=== PATIENT | female | born 1980 | race Caucasian/White ===

== ENCOUNTER → 2017-03-11 | Outpatient (CLI) | payer BC ==
[~2017-03-11] MED LIST: HYDR1LIQ PO; HYDR2TAB PO; LEVO25TA55 PO; OMEP20CA9 PO; TRAM50TA PO; VENL150C PO
--- NOTE | 2017-03-11 13:01 | RAD ---
Indication neck pain. No history of trauma. Axial images through the cervical spine were obtained and reformatted in the coronal and sagittal planes. Disc images were also obtained. It should be noted that CT is relatively insensitive evaluating for disc disease in the cervical spine. If additional imaging is warranted consider MRI. The lung apices are clear. A significant soft tissue finding in the neck is not seen. Review of axial images shows no acute finding. Significant bony degenerative changes are not seen. Vertebral height alignment and disc spaces are unremarkable. Significant bony neural foraminal encroachment is not seen at any level. There is perhaps some mild soft tissue encroachment of the right neural foramina at C6-7 and C7-T1. Again MRI should be considered for additional evaluation. IMPRESSION: No acute finding seen in the cervical spine. No bony central canal narrowing at any level. Suspect mild right foraminal encroachment at C6-7 and C7-T1. Consider MRI for additional evaluation and characterization PQRS Compliance Statement: One or more of the following individualized dose reduction techniques were utilized for this examination: 1. Automated exposure control 2. Adjustment of the mA and/or kV according to patient size 3. Use of iterative reconstruction technique
== END | disposition home or self-care (01) ==
LOC: CT 11:44
PROVIDERS: ATTEND Anesthesiology
DX: M54.2 Cervicalgia (principal); K21.9 Gastro-esophageal reflux disease without esophagitis; M19.90 Unspecified osteoarthritis, unspecified site; F32.9 Major depressive disorder, single episode, unspecified; Z86.39 Personal history of other endocrine, nutritional and metabolic disease; Z86.69 Personal history of other diseases of the nervous system and sense organs; Z87.39 Personal history of other diseases of the musculoskeletal system and connective tissue; Z88.6 Allergy status to analgesic agent; Z88.3 Allergy status to other anti-infective agents; Z88.8 Allergy status to other drugs, medicaments and biological substances
CPT/HCPCS: 72125; 99212

== ENCOUNTER → 2017-03-26 | Outpatient (CLI) | payer BC ==
[~2017-03-26] MED LIST changes: +IOHEXOL 180 MG/ML 20ML VIAL. ONE; +methylPREDNISolone ACETATE 40 MG/ML VIAL. ONE; +methylPREDNISolone ACETATE 80 MG/ML VIAL. ONE
== END | disposition home or self-care (01) ==
LOC: PNCL 09:07
PROVIDERS: ATTEND Anesthesiology
DX: M96.1 Postlaminectomy syndrome, not elsewhere classified (principal); M50.30 Other cervical disc degeneration, unspecified cervical region; Z88.6 Allergy status to analgesic agent; Z88.1 Allergy status to other antibiotic agents; Z88.3 Allergy status to other anti-infective agents; Z91.048 Other nonmedicinal substance allergy status
CPT/HCPCS: 62321; J1030; J1040

== ENCOUNTER → 2017-04-09 | Outpatient (CLI) | payer BC ==
[~2017-04-09] MED LIST changes: +IOHEXOL 180 MG/ML 10 ML VIAL. ONE; -IOHEXOL 180 MG/ML 20ML VIAL. ONE
== END | disposition home or self-care (01) ==
LOC: PNCL 09:14
PROVIDERS: ATTEND Anesthesiology
DX: M50.10 Cervical disc disorder with radiculopathy, unspecified cervical region (principal); M96.1 Postlaminectomy syndrome, not elsewhere classified; M51.16 Intervertebral disc disorders with radiculopathy, lumbar region; K21.9 Gastro-esophageal reflux disease without esophagitis; M19.90 Unspecified osteoarthritis, unspecified site; E03.9 Hypothyroidism, unspecified; F32.9 Major depressive disorder, single episode, unspecified; Z86.69 Personal history of other diseases of the nervous system and sense organs; Z87.39 Personal history of other diseases of the musculoskeletal system and connective tissue; Z86.39 Personal history of other endocrine, nutritional and metabolic disease; Z88.1 Allergy status to other antibiotic agents; Z88.3 Allergy status to other anti-infective agents; Z91.048 Other nonmedicinal substance allergy status
CPT/HCPCS: 62321; J1030; J1040

== ENCOUNTER → 2017-05-02 | Outpatient (CLI) | payer BC ==
--- NOTE | 2017-05-02 21:21 | PAIN ---
DATE OF SERVICE: 05/02/2017 PROGRESS NOTE FOR PAIN CLINIC DIAGNOSES: 1. Cervical radiculopathy with cervical degenerative disk disease. 2. Lumbar radiculopathy with lumbar degenerative disk disease and post-lumbar laminectomy syndrome. HISTORY OF PRESENT ILLNESS: The patient is a 36-year-old female who returns for followup status post cervical epidural steroid injection x 2. The patient reports that she was last seen on 04/09/2017, underwent her second injection at that time and did very well with this once again with about 85% improvement with the pain. It is returning again in the right upper extremity, shoulder and arm. The patient reports it is worse with activity, rates as 8 on a scale of 10 at its worst and it is 4 on a scale of 10 currently, it is 6 on a scale of 10 on average. The patient reports it is waking her from sleep occasionally, but not every night. She will reposition, get out of bed, apply cold or heat to her shoulder and arm, which helps. She is also doing some massage therapy, which is helping as well, but the pain is returning, not to baseline, but still significantly radiating from the shoulder on the right side into the right arm, mostly in the posterior aspect and anterior aspect as well, the upper arm, the posterior forearm, and into the hand involving all the fingers. The patient reports no loss of motor function, but she has been noticing more clumsy movements with the right hand and had difficulty with fatigability in the arms significantly. The patient reports it as aching, shooting, tingling, burning, radiating, but it is on and off. PHYSICAL EXAMINATION: VITAL SIGNS: Today, the patient's blood pressure 129/78, pulse 96, respirations 16, temperature 98.7 degrees Fahrenheit, weight is 183 pounds. GENERAL: The patient is awake, alert, oriented, appropriate, very pleasant demeanor. HEENT: Head shows normocephalic, atraumatic. Extraocular movements are intact and symmetrical. Oral cavity shows mucous membranes moist and pink. NECK: Shows anterior throat is supple without palpable lymphadenopathy noted. Swallow reflex is symmetrical. CHEST: Shows normal on inspection. Breath sounds are clear to auscultation bilaterally. HEART: Shows S1 and S2 clear. BACK: Shows spine grossly in the midline with well-healed surgical scarring noted in the lumbar distribution. Cervical paraspinous musculature is symmetrical with inspection, with palpation shows some moderate tenderness only in the middle and lower distribution of paraspinous muscles, worse on the right than the left, more tender. No tenderness on the left trapezius, but right trapezius in the superior medial aspect shows significant tenderness without radiation or trigger points. NECK: Shows full rotational motion both laterally as well as extension and forward flexion with some pain reported with full forward flexion ____ chest on the right side of the superior aspect of the cervical paraspinous distribution. No radiation. EXTREMITIES: Upper extremities show deep tendon reflexes 2+ in the biceps and triceps tendons. Motor exam is approximately 4 on a scale of 5 with right stitcher operator strength and 5/5 on the left. Options were discussed with the patient and the patient's old chart was reviewed as her current medication regimen updated. Current review of systems updated today as well. We will proceed with a third in the series of cervical epidural steroid injection with fluoroscopic guidance. Risks were again discussed including, but not limited to bleeding, infection, possibility of epidural hematoma, subsequent neurological compromise, dural punctures, headaches, spinal cord and/or nerve damage, side effects of steroid medication and poor results regarding pain control. The patient understands and wishes to proceed. The patient will return to clinic in approximately 2 weeks for followup, was counseled on return appointment, activity level and side effects to be aware of. DIAGNOSES: Cervical radiculopathy with cervical degenerative disk disease. PROCEDURE: Cervical epidural steroid injection in translaminar approach at the C6-C7 level using C-arm fluoroscopic guidance under sterile prep and drape. MEDICATIONS INJECTED: A 120 mg of Depo-Medrol plus 5 mL of preservative-free normal saline and 2 mL of Isovue for contrast. CONDITION AT DISCHARGE: Stable. The patient tolerated the procedure well, had no complications. JOSE ROBERTO MARY MD DR: LIBBY/yaima JOB#: [id number] / [id number]
== END | disposition home or self-care (01) ==
LOC: PNCL 09:41
PROVIDERS: ATTEND Anesthesiology
DX: M50.123 Cervical disc disorder at C6-C7 level with radiculopathy (principal); M51.16 Intervertebral disc disorders with radiculopathy, lumbar region; M96.1 Postlaminectomy syndrome, not elsewhere classified; K21.9 Gastro-esophageal reflux disease without esophagitis; E03.9 Hypothyroidism, unspecified; F32.9 Major depressive disorder, single episode, unspecified; Z86.69 Personal history of other diseases of the nervous system and sense organs; Z86.39 Personal history of other endocrine, nutritional and metabolic disease; Z87.39 Personal history of other diseases of the musculoskeletal system and connective tissue; Z88.6 Allergy status to analgesic agent; Z88.1 Allergy status to other antibiotic agents; Z88.3 Allergy status to other anti-infective agents; Z91.048 Other nonmedicinal substance allergy status
CPT/HCPCS: 62321; J1030; J1040

== ENCOUNTER → 2017-06-17 | Outpatient (CLI) | payer BC ==
[~2017-06-17] MED LIST changes: -IOHEXOL 180 MG/ML 10 ML VIAL. ONE; -methylPREDNISolone ACETATE 40 MG/ML VIAL. ONE; -methylPREDNISolone ACETATE 80 MG/ML VIAL. ONE
--- NOTE | 2017-06-17 19:52 | PAIN ---
DATE OF SERVICE: 06/17/2017 DIAGNOSES: 1. Cervical radiculopathy with cervical degenerative disk disease. 2. Lumbar radiculopathy with lumbar degenerative disk disease and post-lumbar laminectomy syndrome with spinal cord stimulator. HISTORY OF PRESENT ILLNESS: The patient is a 37-year-old female who returns for followup status post cervical epidural steroid injections x 3, last seen on 05/02/2017. The patient did well with this with about a 90% improvement, but the pain is returning now in the right arm with increased weakness and pain as well throughout the right arm and hand with some weakness. She has been dropping items more frequently. It was aching and shooting, tingling, burning, cramping, radiating, can be on and off in intensity, but always present. She reports it is getting worse over the past 1 month or so, it is a 7 on a scale of 10 at its worst, is a 4 on average and a 2 at its least and is a 4 today. The patient reports it has been awakening her from sleep at night as well. She does not sleep well anyway, but the pain is waking her as well in the right arm, she has to reposition, get back to sleep most nights. The patient reports no new motor or sensory deficits, no new bowel or bladder incontinence. Also, some low back pain which we have done some facet joint injections as she also has a spinal cord stimulator which she reports is working well with good coverage in the low back and lower extremities at current settings and she is pleased with ____ without need for reprogramming at this time. PAST MEDICAL HISTORY: Significant for acid reflux, headaches, arthritis. PREVIOUS SURGERY: Includes tubal ligation, x 3, right foot surgery and a lumbar laminectomy. CURRENT MEDICATIONS: Include omeprazole, hydromorphone, tramadol, Effexor, Synthroid and are updated on the patient's chart today. ALLERGIES: THE PATIENT IS ALLERGIC TO LATEX, OXYCODONE AND CODEINE. FAMILY HISTORY: Significant for cancer, diabetes, kidney disease, psychiatric problems, tuberculosis, emphysema, asthma and anesthesia complications. SOCIAL HISTORY: The patient does not smoke. Drinks alcohol very rarely. 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 REVIEW OF SYSTEMS: The patient's review of systems is positive for those items mentioned in history of present illness. It is complete, full and well documented on the patient's chart. PHYSICAL EXAMINATION: VITAL SIGNS: Today, the patient's blood pressure is 122/79, pulse is 90, respirations 18, temperature is 98.1 degrees Fahrenheit. Height is 5 feet 4 inches, weight is 183 pounds. GENERAL: The patient is awake, alert, oriented, appropriate, is a very pleasant demeanor. HEENT: Head shows normocephalic, atraumatic. Extraocular movements are intact and symmetrical. Oral cavity shows mucous membranes moist and pink. Dentition is intact. NECK: Shows anterior throat supple without palpable lymphadenopathy noted. Swallow reflex is symmetrical. CHEST: Shows normal with inspection. Breath sounds are clear to auscultation bilaterally. HEART: Shows S1 and S2 clear. ABDOMEN: Obese, soft, nontender, nondistended. No palpable organomegaly is noted. MUSCULOSKELETAL: Back shows spine grossly in the midline. Cervical paraspinous musculature shows midline with some moderate tenderness, more on the right than the left in the upper, middle and inferior aspect of the cervical paraspinous muscles as well as superior, medial and lateral trapezius; diffusely tender on the left side, it is only very mildly tender diffusely as well. The patient does show good rotational motion of the cervical spine, both laterally as well as extension and flexion without significant increase in pain. Upper extremities showed deep tendon reflexes 2+ in the biceps and triceps tendons. Motor exam is approximately 5/5 on the left and 3-4/5 on the right with slitter service and setter strength; biceps and triceps flexion is 4/5 on the right, 5/5 on the left. Peripheral pulses are 2+, radial distribution. No peripheral edema is noted. The patient shows good rotational motion of the shoulder. Shoulder shrug is strong and intact without loss of strength and resistance as is abduction of the shoulders at 90 degrees without loss of strength as well bilaterally. PLAN: Options were discussed with the patient and the patient's old chart was reviewed as her current medication regimen and updated. Current review of systems updated today is as noted. We will check MRI scan of the cervical spine as she did have a suspected C6-C7 and C7-T1 mass effect on the right side from CT scan, which was done in February. We checked with the patient's [employer] spinal cord stimulator company and her stimulator is compatible with MRI. Therefore, we will obtain a cervical MRI scan to better differentiate the possible increase stenosis and/or disk protrusion/herniation at these levels in the neck on the right side. We discussed possibility of a neurosurgical evaluation pending on her MRI scan results. The patient will maintain stretching and strengthening exercises in the meantime and we will get the MRI scheduled and follow up once this is performed. JOSE ROBERTO MARY MD DR: LIBBY/yaima JOB#: [id number] / [id number]
== END | disposition home or self-care (01) ==
LOC: PNCL 10:26
PROVIDERS: ATTEND Anesthesiology
DX: M51.16 Intervertebral disc disorders with radiculopathy, lumbar region (principal); K21.9 Gastro-esophageal reflux disease without esophagitis
CPT/HCPCS: 99212

== ENCOUNTER → 2017-06-23 | Outpatient (CLI) | payer BC | END | disposition home or self-care (01) | LOC: MRI 10:04 | PROVIDERS: ATTEND Anesthesiology ==

== ENCOUNTER → 2017-06-24 | Outpatient (CLI) | payer BC ==
--- NOTE | 2017-06-24 11:05 | RAD ---
MRI cervical spine without contrast 06/24/2017 INDICATION: Neck pain with right arm radiculopathy COMPARISON: CT cervical spine March 11, 2017, MRI cervical spine July 24, 2012 TECHNIQUE: Multiplanar, multisequence MR imaging of the cervical spine is provided without intravenous contrast. FINDINGS: There is straightening of the normal cervical lordosis. Marrow signal intensity is normal in all sequences. There is no acute fracture identified. Disc heights are maintained. There is no prevertebral soft tissue swelling. Posterior fossa is normal in appearance. Vertebral artery flow voids are maintained. A 5 mm cystic lesion is identified in the right sella. Craniocervical junction is normal in appearance. C2-C3: Disc is normal in configuration. Mild right facet arthropathy. No neural foraminal or spinal canal stenosis. C3-C4: Disc is normal in configuration. No significant facet or uncovertebral joint arthropathy. No neural foraminal or spinal canal stenosis. C4-C5: Disc is normal in configuration. No significant facet arthropathy. No neural foraminal or spinal canal stenosis. C5-C6: Disc is normal in configuration. No significant facet arthropathy. Mild uncovertebral joint arthropathy. Mild left neural foraminal stenosis. No spinal canal stenosis. C6-C7: Disc is normal in configuration. No significant facet arthropathy. No neural foraminal or spinal canal stenosis. C7-T1: Disc is normal in configuration. No significant facet arthropathy. No uncovertebral joint arthropathy. No neural foraminal or spinal canal stenosis. IMPRESSION: 1. There is a 5 mm cystic lesion identified in the right sella. 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 Further evaluation with a pituitary protocol MRI with and without contrast is recommended. 2. Minimal degenerative changes of the cervical spine, as above. Electronically signed by: Elizabeth Lucia MD (06/24/2017 11:01 AM) [id number]
== END | disposition home or self-care (01) ==
LOC: MRI 10:12
PROVIDERS: ATTEND Anesthesiology
DX: M54.12 Radiculopathy, cervical region (principal); M47.892 Other spondylosis, cervical region
CPT/HCPCS: 72141

== ENCOUNTER → 2017-11-14 | Outpatient (CLI) | payer BC ==
[~2017-11-14] MED LIST changes: -HYDR1LIQ PO; -HYDR2TAB PO; +IOHEXOL 180 MG/ML 10 ML VIAL.; -LEVO25TA55 PO; -OMEP20CA9 PO; -TRAM50TA PO; -VENL150C PO; +methylPREDNISolone ACETATE 40 MG/ML VIAL.; +methylPREDNISolone ACETATE 80 MG/ML VIAL.
== END | disposition home or self-care (01) ==
LOC: PNCL 09:10
DX: M50.10 Cervical disc disorder with radiculopathy, unspecified cervical region (principal); M51.16 Intervertebral disc disorders with radiculopathy, lumbar region; M25.519 Pain in unspecified shoulder; R51 Headache
CPT/HCPCS: G0463; J1030; J1040; Q9965

== ENCOUNTER → 2020-02-24 | Outpatient (CLI) | payer BC ==
[~2020-02-24] MED LIST changes: +BUPR150T6 PO; +HYDR1LIQ PO; +HYDR2TAB PO; -IOHEXOL 180 MG/ML 10 ML VIAL.; +IOHEXOL 180 MG/ML 10 ML VIAL. ONE; +LEVO25TA55 PO; +METF-658 PO; +OMEP20CA16 PO; +TRAM50TA PO; +VENL150C PO; -methylPREDNISolone ACETATE 40 MG/ML VIAL.; +methylPREDNISolone ACETATE 40 MG/ML VIAL. ONE; -methylPREDNISolone ACETATE 80 MG/ML VIAL.; +methylPREDNISolone ACETATE 80 MG/ML VIAL. ONE
--- NOTE | 2020-02-24 09:04 | PAIN ---
DATE OF SERVICE: 02/24/2020 PROGRESS NOTE FOR PAIN CLINIC DIAGNOSES: 1. Cervical radiculopathy with cervical degenerative disk disease. 2. Lumbar radiculopathy with lumbar degenerative disk disease and lumbar post-laminectomy syndrome with spinal cord stimulator. HISTORY OF PRESENT ILLNESS: The patient is a 39-year-old female who returns for followup status post spinal cord stimulation she was in few weeks ago for reprogramming with a [employer] underwriting sales representative. The patient reports it is taking 6 hours for her to charge her generator and this is becoming quite cumbersome and difficult to do for 6-hour time-period to recharge when it should be about 1 hour by fire apparatus engineer guidelines. The patient reports that the stimulator is still getting good coverage in the low back, especially in the left lower extremity, but charging time is becoming longer and longer and much more cumbersome to perform this. The patient reports no new motor or sensory deficits, also some pain in the base of the neck and shoulders bilaterally, upper extremities, slightly more on the right than the left with radiating pain in the base of neck and right arm and shoulder into the posterior triceps, biceps, into the forearm with some tingling in the forearm and hand on the right, occasionally on the left, mostly on the right side. The patient reports no new motor or sensory deficits, no bowel or bladder incontinence, but significant increasing radicular pain in the right upper extremity compared to left. She has done well with cervical epidural steroid injections approximately 2 years ago. The patient reports pain is sharp and shooting in the neck and arm, stabbing in the neck, radiating into the right upper extremity and left as well. The patient reports it is an 8 on a scale of 10 at its worst over the past week, 4 on average, 2 at its least and is a 4 today. The patient reports no new motor or sensory deficits, no new bowel or bladder incontinence or other complaints. PHYSICAL EXAMINATION: VITAL SIGNS: The patient's blood pressure is 138/85, pulse 103, respirations 18, temperature 98.1 degrees Fahrenheit, height is 5 feet 4 inches, weight is 200 pounds. GENERAL: The patient is awake, alert, oriented, appropriate, very pleasant demeanor. HEENT: Shows normocephalic, atraumatic. Extraocular movements are intact and symmetrical. Oral cavity: Mucous membranes are moist and pink. Dentition is intact. NECK: Shows anterior throat supple without palpable lymphadenopathy noted. Swallow reflex is symmetrical. CHEST: Shows normal on inspection. Breath sounds are clear. No rales, rhonchi or wheezes auscultated. HEART: Shows S1, S2 clear. No murmurs auscultated. ABDOMEN: Soft, nontender, nondistended. No palpable organomegaly is noted. No rebound or guarding demonstrated. BACK: Shows spine grossly in the midline. Well-healed surgical scar noted in the lumbar distribution, also easily palpable spinal cord stimulator, right superior gluteus with well-healed surgical scar as well. No tenderness with palpation. The patient does show good rotational motion of the lumbar spine, both laterally as well as extension and flexion without difficulty. Cervical paraspinous muscle shows symmetrical on inspection, with palpation shows some moderate tenderness diffusely in the middle and lower distribution of paraspinous muscles and superior medial trapezius as well, but only diffusely without specific radiation, without trigger points. The patient has good rotational motion of the cervical spine, both laterally greater than 45 degrees right and left as well as extension and full forward flexion with only minor tenderness with all these maneuvers. EXTREMITIES: The patient's upper extremities show deep tendon reflexes 2+ in the biceps and triceps tendons. Motor exam is approximately 4 on a scale of 5 on the right, 5/5 on the left. Peripheral pulses are 2+ radial. No peripheral edema is noted. Lower extremities show deep tendon reflexes at 1+ patellar and tendo calcaneus tendons. Motor exam is strong with 5/5 dorsiflexion and extension. Options were discussed with the patient. The patient's old chart was reviewed as her current medication regimen updated. Current review of systems updated today as well. We will have preauthorization for cervical epidural steroid injection. She has done very well with these in the past with approximately 90% improvement. Pain again returning now over the past few months with radicular pain in the C6-C7 dermatomal distribution some on the left, but mostly on the right side. We will plan on cervical epidural steroid injection at the C6-C7 level, translaminar approach. Upon a preauthorization also, we will preauthorize the patient for a spinal cord stimulator generator change as hers is nearing its life expectancy for the generator and with increased significantly charging times, although still effective and not holding its charge nearly as it should. We will make these arrangements. The patient will follow up as scheduled. JOSE ROBERTO MARY MD DR: LIBBY/yaima JOB#: [id number] / [id number]
== END | disposition home or self-care (01) ==
LOC: PNCL 08:04
PROVIDERS: ATTEND Anesthesiology
DX: M50.30 Other cervical disc degeneration, unspecified cervical region (principal); M51.36 Other intervertebral disc degeneration, lumbar region; M96.1 Postlaminectomy syndrome, not elsewhere classified
CPT/HCPCS: G0463; J1030; J1040; Q9965

== ENCOUNTER → 2020-02-25 | Outpatient (CLI) | payer BC ==
--- NOTE | 2020-02-25 11:21 | PAIN ---
DATE OF SERVICE: 02/25/2020 PROGRESS NOTE FOR PAIN CLINIC DIAGNOSES: 1. Cervical radiculopathy with cervical degenerative disk disease. 2. Lumbar radiculopathy with lumbar degenerative disk disease and lumbar post-laminectomy syndrome with spinal cord stimulator. HISTORY OF PRESENT ILLNESS: The patient is a 39-year-old female who returns for followup. We had seen her a few days ago with preauthorization pending for cervical epidural steroid injection. The patient has obtained that now, reports still significant pain in the base of neck and right and left upper extremities and shoulders, right side greater than the left to a moderate extent, but present bilaterally. The patient reports also pain in the low back, left leg and is scheduled for a stimulator generator change in about approximately 1 week secondary to a generator failure and not holding a charge. The patient reports her neck and shoulders have been significantly tender and she has done well with cervical epidural steroid injections in the past, most recently 2018. The patient reports the pain is 8 on a scale of 10 at its worst over the past week, 6 on average, 3 at its least and is a 3 today. The patient reports it is sharp and shooting, stabbing across the shoulders, again right worse than left into the arms and extremities with extended use and weightbearing, repetitive motions with upper extremities, but otherwise has been affecting her sleep as well, waking her from sleep about 5-6 hours. The patient reports she can easily reposition and get back to sleep. Reports no new motor or sensory deficits, no new bowel or bladder incontinence or other complaints. PHYSICAL EXAMINATION: VITAL SIGNS: The patient's blood pressure 133/86, pulse 99, respirations 16, temperature 97.9 degrees Fahrenheit, height is 5 feet 4 inches, weight is 198 pounds. GENERAL: The patient is awake, alert, oriented, appropriate, very pleasant demeanor. HEENT: Shows normocephalic, atraumatic. Extraocular movements are intact and symmetrical. Oral cavity: Mucous membranes moist and pink. Dentition is intact. NECK: Shows anterior throat supple without palpable lymphadenopathy noted. Swallow reflex symmetrical. CHEST: Shows normal on inspection. Breath sounds clear to auscultation bilaterally. HEART: Shows S1, S2 clear. No murmurs auscultated. ABDOMEN: Soft, nontender, nondistended. No palpable organomegaly is noted. There is no rebound or guarding demonstrated. BACK: Shows spine grossly in the midline. Normal appearing thoracic kyphosis and some minor flattening of lumbar lordotic curvature. There is a well-healed surgical scarring noted, again easily palpable spinal cord stimulator generator in the right posterior gluteus with well-healed surgical scar there as well. EXTREMITIES: The patient's upper extremities show deep tendon reflexes 2+ in the biceps and triceps tendons. Motor exam is strong with hub inventory specialist strength approximately 5/5 on the left, 4/5 on the right, but intact bicep and tricep flexion is likewise 4/5 right, 5/5 on the left. Peripheral pulses are 2+ radial. No peripheral edema is noted bilaterally. Shoulder shrug is strong and intact without loss of strength on resistance with some moderate tenderness with palpation. The patient has good rotational motion of cervical spine, both laterally as well as extension and flexion without significant difficulty. Options were discussed with the patient. The patient's old chart was reviewed as her current medication regimen updated. Current review of systems updated today as well and we will proceed with a cervical epidural steroid injection today with fluoroscopic guidance. Risks were again discussed including, but not limited to bleeding, infection, possibility of epidural hematoma, subsequent neurological compromise, dural puncture, headaches, spinal cord and/or nerve damage, side effects of steroid medication and poor results regarding pain control. The patient understands and wished to proceed. The patient will return to clinic in approximately 2 weeks for followup. She was counseled on return appointment, activity level and side effects to be aware of. Again, the patient will return for a spinal cord stimulator generator change approximately 1 week pending preop completion as well. DIAGNOSIS: Cervical radiculopathy with cervical degenerative disk disease. PROCEDURE: Cervical epidural steroid injection, translaminar approach C6-C7 level using C-arm fluoroscopic guidance under sterile prep and drape using local anesthetic. MEDICATION INJECTED: A total of 120 mg Depo-Medrol plus 5 mL of preservative-free normal saline and 2 mL of contrast. CONDITION AT DISCHARGE: Stable. The patient tolerated procedure well, had no complications. JOSE ROBERTO MARY MD DR: LIBBY/yaima JOB#: [id number] / [id number]
== END ==
LOC: PNCL 09:21
PROVIDERS: ATTEND Anesthesiology
DX: M50.123 Cervical disc disorder at C6-C7 level with radiculopathy (principal); M96.1 Postlaminectomy syndrome, not elsewhere classified; M51.16 Intervertebral disc disorders with radiculopathy, lumbar region
CPT/HCPCS: 62321; J1030; J1040; Q9965

== ENCOUNTER → 2020-02-28 | Outpatient (CLI) | payer BC ==
[~2020-02-28] MED LIST changes: -IOHEXOL 180 MG/ML 10 ML VIAL. ONE; -methylPREDNISolone ACETATE 40 MG/ML VIAL. ONE; -methylPREDNISolone ACETATE 80 MG/ML VIAL. ONE
== END | disposition home or self-care (01) ==
LOC: LAB 14:34
PROVIDERS: ATTEND Anesthesiology
DX: Z11.59 Encounter for screening for other viral diseases (principal)
CPT/HCPCS: U0003-CS

== ENCOUNTER 2020-03-03 10:25 | Day surgery (SDC) | payer BC ==
[~2020-03-03] VITALS: Ht 162.6 cm; Wt 90.7 kg
[~2020-03-03 10:25] MED LIST changes: +BACITRACIN 50,000 UNIT in IV NORMAL SALINE 500ML BAG 500 ML IRR ONE; -BUPR150T6 PO; +IV RINGERS,LACTATED 1000ML 1,000 ML IV SCH; -METF-658 PO; +ONDANSETRON PF 4 MG/2 ML VIAL. IV PRN; +PROCHLORPERAZINE 10 MG/2 ML VIAL. IV PRN; +fentaNYL PF VIAL 100 MCG/2 ML VIAL IV PRN
[2020-03-03] MEDS ORDERED: METF-658 PO (11:05)
[2020-03-03] MEDS ORDERED: BUPR150T6 PO (11:05)
[2020-03-03] MEDS ORDERED: fentaNYL PF VIAL 100 MCG/2 ML VIAL ONE (11:38)
[2020-03-03] MEDS ORDERED: SUCCINYLCHOLINE 200 MG/10 ML VIAL. ONE (11:38)
[2020-03-03] MEDS ORDERED: SEVOFLURANE 61 TO 120 MINUTES. IH ONE (11:38)
[2020-03-03] MEDS ORDERED: MIDAZOLAM HCL/PF 2 MG/2 ML VIAL. ONE (11:38)
[2020-03-03] MEDS ORDERED: DEXAMETHASONE SOD PHOS 4 MG/ML VIAL ONE (11:39)
[2020-03-03] MEDS ORDERED: LIDOCAINE 2% PF 5 ML VIAL. ONE (11:39)
[2020-03-03] MEDS ORDERED: PROPOFOL 10 MG/ML (20ML) VIAL. IV ONE ×2 (11:39→12:40)
[2020-03-03] MEDS ORDERED: ONDANSETRON PF 4 MG/2 ML VIAL. ONE (11:39)
[2020-03-03] MEDS ORDERED: LIDOCAINE 1%/EPI 1:100,000 20 ML VIAL. ONE (11:49)
[2020-03-03] MEDS ORDERED: SCOPOLAMINE 1.5MG PATCH. TD ONE (11:54)
[2020-03-03] MEDS ORDERED: ceFAZolin SODIUM IV Push 1 GM VIAL. IVP ONE (12:40)
--- NOTE | 2020-03-03 12:50 | DISCH ---
DISCHARGE INSTRUCTIONS Condition on Discharge Condition on Discharge: Stable Activity After Discharge Activity Instructions for Disc: Activity as tolerated Lifting Instructions after Dis: No heavy lifting Driving Instructions after Dis: Do not drive today Diet after Discharge Diet after Discharge: Regular Wound Incision Care Wound/Incision Care: Reinforce dressing PRN Contacting the DRMiroslava after DC Call your doctor for: Concerns you may have JOSE ROBERTO MARY MD Mar 03, 2020 12:50
--- NOTE | 2020-03-03 12:52 | PDOC4 ---
OPERATIVE NOTE Date: Date: Mar 03, 2020 Pre-Op Diagnosis: Lumbar Radiculopathy Post-Op Diagnosis: same Procedure Performed: Removal and replacement spinal cord stimulator generator Surgeon: Quang Anesthesia Type: General Blood Loss: 5cc Specimans Obtained: none Findings: see dictation Complications: none Operative Note: see dictation JOSE ROBERTO MARY MD Mar 03, 2020 12:52
[2020-03-03] MEDS ORDERED: SEVOFLURANE 31 TO 60 MINUTES. IH ONE (13:01)
[2020-03-03] MEDS ORDERED: TRAM50TA PO (13:23)
[2020-03-03 14:35] VITALS: BP 124/47
--- NOTE | 2020-03-03 15:15 | PAIN ---
DATE OF SERVICE: 03/03/2020 PREOPERATIVE DIAGNOSIS: Post-lumbar laminectomy syndrome with chronic lumbar radiculopathy. POSTOPERATIVE DIAGNOSIS: Post-lumbar laminectomy syndrome with chronic lumbar radiculopathy. PROCEDURE: Removal and replacement of spinal cord stimulator generator. Risks were discussed including but not limited to bleeding, infection, possibility of malfunction of new generator battery as well as poor results regarding pain control. The patient understands and wished to proceed. DESCRIPTION FOR PROCEDURE: The patient was taken to operating room #9. After ASA monitors were placed and general anesthesia was induced. The patient was placed in prone position with all pressure points padded and breath sounds clear bilaterally. The patient was sterilely prepped and draped in the right posterior gluteus and low back in usual fashion allowing 3 minutes for prep to dry before draping. The patient was then draped with sterile drapes in usual fashion. Using a 25-gauge needle, 1% lidocaine with 1:200,000 epinephrine was then injected into the skin and subcutaneous tissue in a transverse fashion just above the palpable spinal cord stimulator battery in the right posterior superior gluteus. At this time, using #10 scalpel blade, incision was made in a transverse fashion continued down through the subcutaneous tissue into the adipose tissue. Local hemorrhage was controlled using electrocautery as well as pressure and irrigation. Pocket was then exposed using Metzenbaum scissors with both blunt and dull dissection and digital dissection as well with blunt digital dissection. The spinal cord stimulator battery was identified, removed from the pocket without difficulty showing intact as well as the spinal cord stimulator wire leads intact x 2, leads were removed from the old generator. The generator was then connected to the spinal cord stimulator leads with good impedance check in all leads with both wire leads, they were then secured with a [employer] securing ratchet device. The patient's pocket was then reinspected, irrigated x 3 with bacitracin irrigation. No local hemorrhage was identified. The stimulator was then placed into the pocket using 0 silk suture to secure the superior medial aspect of the stimulator generator to the subcutaneous tissue and the pocket was then closed using interrupted 2-0 Vicryl and the skin was closed in a running fashion using 3-0 Vicryl. Steri-Strips and Mastisol as well as Telfa dressing and island dressing were then applied. The patient tolerated procedure well, had no immediate complications and was taken to the recovery room in good awake and stable condition. JOSE ROBERTO MARY MD DR: LIBBY/yaima JOB#: [id number] / [id number]
--- NOTE | 2020-03-07 12:51 | OP ---
DATE OF SURGERY: 03/03/2020 PREOPERATIVE DIAGNOSIS: Post-lumbar laminectomy syndrome with chronic lumbar radiculopathy. POSTOPERATIVE DIAGNOSIS: Post-lumbar laminectomy syndrome with chronic lumbar radiculopathy. PROCEDURE: Removal and replacement of spinal cord stimulator generator. Risks were discussed including but not limited to bleeding, infection, possibility of malfunction of new generator battery as well as poor results regarding pain control. The patient understands and wished to proceed. DESCRIPTION FOR PROCEDURE: The patient was taken to operating room #9. After ASA monitors were placed and general anesthesia was induced. The patient was placed in prone position with all pressure points padded and breath sounds clear bilaterally. The patient was sterilely prepped and draped in the right posterior gluteus and low back in usual fashion allowing 3 minutes for prep to dry before draping. The patient was then draped with sterile drapes in usual fashion. Using a 25-gauge needle, 1% lidocaine with 1:200,000 epinephrine was then injected into the skin and subcutaneous tissue in a transverse fashion just above the palpable spinal cord stimulator battery in the right posterior superior gluteus. At this time, using #10 scalpel blade, incision was made in a transverse fashion continued down through the subcutaneous tissue into the adipose tissue. Local hemorrhage was controlled using electrocautery as well as pressure and irrigation. Pocket was then exposed using Metzenbaum scissors with both blunt and dull dissection and digital dissection as well with blunt digital dissection. The spinal cord stimulator battery was identified, removed from the pocket without difficulty showing intact as well as the spinal cord stimulator wire leads intact x 2, leads were removed from the old generator. The generator was then connected to the spinal cord stimulator leads with good impedance check in all leads with both wire leads, they were then secured with a [employer] securing ratchet device. The patient's pocket was then reinspected, irrigated x 3 with bacitracin irrigation. No local hemorrhage was identified. The stimulator was then placed into the pocket using 0 silk suture to secure the superior medial aspect of the stimulator generator to the subcutaneous tissue and the pocket was then closed using interrupted 2-0 Vicryl and the skin was closed in a running fashion using 3-0 Vicryl. Steri-Strips and Mastisol as well as Telfa dressing and island dressing were then applied. The patient tolerated procedure well, had no immediate complications and was taken to the recovery room in good awake and stable condition. JOSE ROBERTO MARY MD DR: LIBBY/yaima JOB#: [id number] / [id number]
== END 2020-03-03 14:55 | disposition home or self-care (01) ==
LOC: SURG 10:25
PROVIDERS: ATTEND Anesthesiology
DX: M54.16 Radiculopathy, lumbar region (principal); M96.1 Postlaminectomy syndrome, not elsewhere classified; G89.29 Other chronic pain; K21.9 Gastro-esophageal reflux disease without esophagitis; Z98.51 Tubal ligation status; M19.90 Unspecified osteoarthritis, unspecified site; E03.9 Hypothyroidism, unspecified; F41.9 Anxiety disorder, unspecified; F32.9 Major depressive disorder, single episode, unspecified; Z98.890 Other specified postprocedural states; E34.8 Other specified endocrine disorders
CPT/HCPCS: 63685; 81025; 82962; A7015; C1713; C1767; J0330; J0690; J1100; J2250; J2405; J2704; J3010; J3490; J7040

== ENCOUNTER → 2020-03-10 | Outpatient (CLI) | payer BC ==
[2020-03-03 14:35] VITALS: BP 124/47
[~2020-03-10] MED LIST changes: -BACITRACIN 50,000 UNIT in IV NORMAL SALINE 500ML BAG 500 ML IRR ONE; +BUPR150T6 PO; -IV RINGERS,LACTATED 1000ML 1,000 ML IV SCH; +METF-658 PO; -ONDANSETRON PF 4 MG/2 ML VIAL. IV PRN; -PROCHLORPERAZINE 10 MG/2 ML VIAL. IV PRN; -fentaNYL PF VIAL 100 MCG/2 ML VIAL IV PRN
--- NOTE | 2020-03-10 09:52 | PAIN ---
DATE OF SERVICE: 03/10/2020 PROGRESS NOTE FOR PAIN CLINIC DIAGNOSES: 1. Cervical radiculopathy with cervical degenerative disk disease. 2. Lumbar radiculopathy with lumbar degenerative disk disease and lumbar post-laminectomy syndrome. HISTORY OF PRESENT ILLNESS: The patient is a 39-year-old female who returns for followup status post recent replacement of spinal cord stimulator generator battery 1 week ago. The patient returns for followup and wound check as well. The patient reports she is doing much better. Wound is still somewhat sore in the right posterior superior gluteus, but healing up very nicely. The patient reports stimulation is very well covered in the low back and legs where she is pleased with it. The patient rates her pain as an 8 on a scale of 10 at its worst in the past week, 5 on average, 3 at its least and is a 3 today. The patient reports it is tingling, stabbing, aching and dull over the area of the surgical incision, but otherwise doing quite well. The patient reports she is sleeping better at night, does not awaken her from sleep. She is getting increased activity over the past week slightly and slowly, but very gradually and consistently. The patient reports no new motor or sensory deficits, no new changes, again good coverage with stimulation. PHYSICAL EXAMINATION: VITAL SIGNS: The patient's blood pressure 136/85, pulse 99, respirations 16, temperature 98.0 degrees Fahrenheit, weight is 198 pounds. GENERAL: The patient is awake, alert, oriented, appropriate, very pleasant demeanor. HEENT: Shows normocephalic, atraumatic. Extraocular movements are intact and symmetrical. Oral cavity: Mucous membranes moist and pink. Dentition is intact. NECK: Shows anterior throat supple without palpable lymphadenopathy noted. Swallow reflex symmetrical. CHEST: Shows normal on inspection. Breath sounds are clear to auscultation bilaterally. HEART: Shows S1, S2 clear. No murmurs auscultated. ABDOMEN: Soft, nontender, nondistended. BACK: Shows spine grossly in the midline. Normal appearing thoracic kyphosis and minor flattening of lumbar lordotic curvature. The patient's lumbar paraspinous muscle shows symmetrical on inspection, on palpation shows some mild tenderness diffusely in the low lumbar distribution only. The patient shows good and well healing surgical scar on the right superior medial gluteus with Steri-Strips still in place. No erythema, no drainage, no significant tenderness with palpation. EXTREMITIES: The patient's lower extremities show deep tendon reflexes at 2+ patellar, 1+ tendo-calcaneus tendons. Motor exam is strong with approximately 5/5 dorsiflexion and extension bilaterally. Options were discussed with the patient. The patient's old chart was reviewed as her current medication regimen updated. Current review of systems updated today as well. We will proceed with redressing the patient's wound very lightly with only very light gauze and tape. Steri-Strips are very intact and dry. Again, no erythema, no drainage. The patient will follow up at this time on as needed basis as stimulation is adequate and covering completely. We will follow up with a [employer] assistance representative if necessary as well with any reprogramming needs or battery concerns. We will follow up at this time on as needed basis with this office as well. JOSE ROBERTO MARY MD DR: LIBBY/yaima JOB#: [id number] / [id number]
== END ==
LOC: PNCL 08:58
PROVIDERS: ATTEND Anesthesiology
DX: M51.16 Intervertebral disc disorders with radiculopathy, lumbar region (principal); M50.10 Cervical disc disorder with radiculopathy, unspecified cervical region; M96.1 Postlaminectomy syndrome, not elsewhere classified
CPT/HCPCS: G0463

== ENCOUNTER → 2020-03-27 | Outpatient (CLI) | payer BC ==
[2020-03-03 14:35] VITALS: BP 124/47
--- NOTE | 2020-03-27 16:03 | PAIN ---
DATE OF SERVICE: 03/27/2020 PROGRESS NOTE FOR PAIN CLINIC DIAGNOSES: 1. Cervical radiculopathy with cervical degenerative disk disease. 2. Lumbar radiculopathy with lumbar degenerative disk disease and lumbar post-laminectomy syndrome. HISTORY OF PRESENT ILLNESS: The patient is a 39-year-old female who returns for followup status post spinal cord stimulator generator change. The patient did very well. Initially, she had called earlier with complaints of pain at the wound site on the right gluteus where the generator was placed in the pocket and some redness of the wound and tenderness as well as some drainage. We had her come in this morning and examined this as she reported there was a small stitch ____ from the wound, but she and her under as sterile technique as they could at home clipped this off with scissors and that part is gone, but she still has some drainage and is basin tender and red at the lateral aspect of the wound. The patient reports no fever at home. Other than the tenderness, she has been feeling fairly well. The stimulator is giving good stimulator coverage for back and legs. PHYSICAL EXAMINATION: VITAL SIGNS: The patient's blood pressure is 130/87, pulse 107, respirations 18, temperature 97.9 degrees Fahrenheit, height is 5 feet 4 inches, weight is 198 pounds. GENERAL: The patient is awake, alert, oriented, very appropriate, very pleasant demeanor. HEENT: Shows normocephalic, atraumatic. CHEST: Shows normal on inspection. Breath sounds are clear. HEART: Shows S1, S2 clear. ABDOMEN: Soft, nontender, nondistended. BACK: Shows spine grossly in the midline. Surgical scar noted in the midline as well as over the right posterior lateral gluteus at the site of the spinal cord stimulator battery generator pocket. The wound is red on the lateral aspect of the wound from about 2/3 of distance from the left to right and going medial to lateral. Under sterile technique under sterile alcohol prep with sterile gloves, sterile Q-tips, the wound was massaged and some small amount of serosanguineous fluid was expressed from the wound, but no overt pus, no discoloration other than pink to red fluid without any olfactory sense with tenderness the palpation. With massaging of the wound edges itself, no dehiscence noted. There is a very small area of a pin head size area on the very distal far right lateral aspect of the wound where the serosanguineous fluid was able to be expressed, but again very small amount just enough to stay in the top of 2 small Q-tips. Otherwise, the wound is nontender on the medial edge, but there is erythema involving some induration of the wound edges on the right that is lateral side. PLAN: Options were discussed with the patient. The patient's old chart was reviewed as her current medication regimen updated. Current review of systems updated today as well. We will place the patient on Keflex 500 mg 3 times daily for 14 days. The patient has taken this before and reports she has tolerated it well. Also, educated the patient to keep the wound dry and clean as possible. No submerging such as swimming or hot tub, bathtub, showering ____ soaking of the wound and dry and clinically keep it clean. We discussed hygiene techniques with the wound itself as well as cleaning with peroxide and rubbing alcohol. The patient will maintain this and keep the wound clean and take the antibiotics as prescribed, and will follow up in approximately 2 weeks or sooner if necessary. The patient was given instruction as well as side effects to be aware of with the medication and will follow up as scheduled. JOSE ROBERTO MARY MD DR: LIBBY/yaima JOB#: [id number] / [id number]
== END | disposition home or self-care (01) ==
LOC: PNCL 11:39
PROVIDERS: ATTEND Anesthesiology
DX: M50.10 Cervical disc disorder with radiculopathy, unspecified cervical region (principal); M51.16 Intervertebral disc disorders with radiculopathy, lumbar region; M96.1 Postlaminectomy syndrome, not elsewhere classified
CPT/HCPCS: G0463

== ENCOUNTER → 2021-07-19 | Outpatient (CLI) | payer BC ==
[~2021-07-19] MED LIST changes: +BUPR150T21 PO; -BUPR150T6 PO
--- NOTE | 2021-07-19 07:27 | RAD ---
Ultrasound pelvis complete HISTORY: Fibroid uterus and free administration and dyspareunia and dysmenorrhea Sonographic examination of the pelvis was performed by transabdominal technique. Multiple static imag es were obtained. FINDINGS: The uterus measures 8.2 x 4.2 x 3.2 cm. The endometrium measures 4 mm in thickness. The junctional zo ne is thickened. The ovaries are seen with normal blood flow. The right ovary measures 2.0 x 2.4 x 1. 0 cm. The left ovary measures 3.8 x 4.0 x 3.8 cm and contains a 3.2 x 3.0 x 3.1 cm cyst. There is a a nterior fibroid in the lower segment of the uterus measures 1.3 x 1.2 x 1.6 cm. IMPRESSION: 1. Thickening of the junctional zone is consistent with adenomyosis but may be incidental. 2. Small cysts in the right ovary. Electronically signed by: Blayne Amador III, MD (07/19/2021 7:25 AM) [facility]
== END ==
LOC: US 06:52
PROVIDERS: ATTEND Obstetrics & Gynecology
DX: N83.291 Other ovarian cyst, right side (principal); D25.9 Leiomyoma of uterus, unspecified; N92.0 Excessive and frequent menstruation with regular cycle; N94.10 Unspecified dyspareunia; N94.6 Dysmenorrhea, unspecified
CPT/HCPCS: 76856

== ENCOUNTER 2021-08-28 20:13 | Emergency (ER) | payer BC ==
[~2021-08-28] VITALS: Ht 162.6 cm; Wt 81.8 kg
[2021-08-28 20:25] VITALS: BP 141/63
--- NOTE | 2021-08-28 21:05 | PHYS DOC ---
Past Medical History Past Surgical History: Hysterectomy Additional Past Surgical Histo: 9 BACK SURGERIES, SPINAL CORD STIMULATOR, JENNIFER AND CAGE IN BACK Smoking Status: Former Smoker Alcohol Use: None General Adult EDM: Chief Complaint: BACK PAIN OR INJURY HPI: HPI: Patient is a 41-year-old female who presents to the emergency department for left lower back pain that radiates into her buttock and down her hip. She reports that the pain started this evening when she bent over in the shower and when she stood up she felt a tightening pain in her back. She rates it 8 out of 10. Patient has a history of chronic back pain and has had 9 spinal surgeries. She takes gabapentin at home for her pain. Patient had a hysterectomy on August [address] Xiong. She denies any loss of bowel or bladder, saddle anesthesias, abdominal pain, vaginal bleeding, nausea, vomiting. Review of Systems: Review of Systems: GI: See HPI : See HPI Musculoskeletal: See HPI Neurologic: See HPI Heart Score: C/O Chest Pain: N/A Risk Factors: Risk Factors: DM, Current or recent (<one month) smoker, HTN, HLP, family history of CAD, obesity. Risk Scores: Score 0 - 3: 2.5% MACE over next 6 weeks - Discharge Home Score 4 - 6: 20.3% MACE over next 6 weeks - Admit for Clinical Observation Score 7 - 10: 72.7% MACE over next 6 weeks - Early Invasive Strategies Current Medications: Current Medications Medications (Trade) Dose Ordered Sig/Tabatha Start Time Stop Time Status Last Admin Dose Admin Ketorolac Tromethamine (Toradol Im) 60 mg 1X ONCE 08/28/21 21:30 08/28/21 21:31 Orphenadrine Citrate (Norflex) 60 mg 1X ONCE 08/28/21 21:30 08/28/21 21:31 Allergies: Allergies: Allergies Coded Allergies Type Severity Reaction Last Updated Verified codeine Allergy Severe ANAPHYLAXIS 03/03/20 Yes oxycodone Allergy Severe Anaphylaxis 03/03/20 Yes adhesive Allergy Intermediate Rash 03/03/20 Yes chlorhexidine Allergy Intermediate Rash 08/28/21 Yes ciprofloxacin Allergy Intermediate rash 08/28/21 Yes ciprofloxacin HCl Allergy Intermediate rash 08/28/21 Yes Physical Exam: PE: Constitutional: Well developed, well nourished, no acute distress, non-toxic appearance. [] HENT: Normocephalic, atraumatic, bilateral external ears normal, oropharynx moist, no oral exudates, nose normal. [] Eyes: PERRL, EOMI, conjunctiva normal, no discharge. [] Neck: Normal range of motion, no bony cervical spinal tenderness, no step-offs or deformities supple, no stridor. [] Cardiovascular:Heart rate regular rhythm, no murmur [] Lungs & Thorax: Bilateral breath sounds clear to auscultation [] Abdomen: Soft and flat Skin: Warm, dry, no erythema, no rash. [] Back: Previous surgical scarring noted to lumbar spine, left paraspinal lumbar tenderness with palpation, no bony spinal tenderness Extremities: No tenderness, no cyanosis, no clubbing, ROM intact, no edema. [] Neurologic: Alert and oriented X 3, normal motor function, normal sensory function, no focal deficits noted. [] Psychologic: Affect normal, judgement normal, mood normal. [] Current Patient Data: Vital Signs: Vital Signs Date Time Temp Pulse Resp B/P (MAP) Pulse Ox O2 Delivery O2 Flow Rate FiO2 08/28/21 20:25 98.2 109 18 141/63 (89) 99 Room Air 98.2 EKG: EKG: [] Radiology/Procedures: Radiology/Procedures: []PROCEDURE: CT LUMBAR SPINE WO CONTRAST Study: CT lumbar spine without contrast INDICATION: Severe low back pain. COMPARISON: Lumbar spine MRI 12/11/2012 TECHNIQUE: Axial CT imaging of the lumbar spine performed without the use of intravenous contrast. One or more of the following individualized dose reduction techniques were utilized for this examination: 1. Automated exposure control 2. Adjustment of the mA and/or kV according to patient size 3. Use of iterative reconstruction technique. FINDINGS: Left unilateral pedicle screw fixation at L4-L5 with an intervening spacer device. The hardware is intact and well fixated. Solid bony fusion across the left dorsolateral fusion mass and across the L4-L5 disc space. Straightening of lumbar lordosis. Normal alignment in the coronal plane. Mild degenerative endplate irregularity at L5-S1. No significant disc space height loss. Vertebral body height is maintained. Spinal cord similar device with leads entering at T12-L1 and L1-L2 and extending beyond the cephalad [id number]. No prevertebral or dorsal paraspinous edema. No significant incidental finding of the partially imaged abdominal and pelvic contents. No significant degenerative findings or osseous encroachment on the central canal or neural foramina from T11-T12 through L2-L3. Mild bilateral facet arthrosis at L3-L4. No osseous encroachment on the neural foramina or evidence for significant central canal stenosis. The central canal appears decompressed at the operative L4-L5 level. No osseous neural foraminal stenosis. Mild facet arthrosis bilaterally at L5-S1. Mild posterior disc bulge. Osseous neural foraminal narrowing is mild on the left slightly more so than right. No evidence for severe central canal stenosis. IMPRESSION: 1. Intact and well fixated dorsal fusion construct at L4-L5. No acute osseous abnormality. 2. Mild degenerative changes above and below the L4-L5 operative level. Mild bilateral osseous neural foraminal stenosis on the left slightly more so than right at L5-S1. No evidence for significant narrowing of the central canal. If there is further concern nonemergent/outpatient MRI or CT myelography would allow for better characterization. Electronically signed by: ALANA MATHIAS MD (08/28/2021 10:08 PM) [facility] DICTATED and SIGNED BY: ALANA MATHIAS MD DATE: 08/28/21 [id number] 0 Course & Med Decision Making: Course & Med Decision Making Pertinent Labs and Imaging studies reviewed. (See chart for details) [] Patient presents to the emergency department for left lower back pain that radiates into her buttock. Patient states that it feels like she has a pinched nerve. Pain started after she bent over in the shower and stood back up. Patient is 5 days postop from a hysterectomy and is having no abdominal pain, nausea, vomiting, vaginal bleeding or complaints related to her procedure. Patient is requesting a CT scan of her lumbar spine. CT scan of lumbar spine was performed and patient was treated with anti-inflammatory medications and a muscle relaxer. CT of lumbar spine showed that fusions were intact and there were no acute abnormalities. Patient will be advised to take anti-inflammatory medications at home, patient states that she has gabapentin that she takes for nerve pain. Patient advised to follow-up with her primary care provider. I discussed with patient all findings and diagnostic testing as well as the need to follow-up with PCP for further evaluation and treatment or return to the ER if any new or worsening symptoms. Strict return precautions were also discussed at length. Patient voiced understanding and agreement with the plan. Patient is hemodynamically stable at the time of disposition. Dragon Disclaimer: Maurisioon Disclaimer: This electronic medical record was generated, in whole or in part, using a voice recognition dictation system. Departure Departure Impression: Primary Impression: Back pain Qualified Codes: M54.42 - Lumbago with sciatica, left side; G89.29 - Other chronic pain Disposition: HOME / SELF CARE / HOMELESS Condition: GOOD Referrals: ESSIE MOTA (PCP) Patient Instructions: Sciatica Additional Instructions: You are seen in the emergency department today for back pain. Imaging performed of your lumbar spine does not show any acute findings. Please take anti- inflammatory medications at home like ibuprofen or naproxen. Please continue taking your gabapentin as previously prescribed for your nerve pain. It is likely that you are experiencing sciatica. Please follow-up with your primary care provider tomorrow regarding your ER visit. Please return to the emergency department if you develop any new injury, worsening of your pain, loss of bowel or bladder, numbness or tingling in your groin or down your legs. YONATAN SOLANO ENTRY TECH Aug 28, 2021 21:05
[2021-08-28] MEDS ORDERED: KETOROLAC 60 MG/2 ML VIAL. IM ONE (21:30)
[2021-08-28] MEDS ORDERED: ORPHENADRINE CITRATE 60 MG/2 ML VIAL. IM ONE (21:30)
--- NOTE | 2021-08-28 22:10 | RAD ---
Study: CT lumbar spine without contrast INDICATION: Severe low back pain. COMPARISON: Lumbar spine MRI 12/11/2012 TECHNIQUE: Axial CT imaging of the lumbar spine performed without the use of intravenous contrast. One or more of the following individualized dose reduction techniques were utilized for this examinat ion: 1. Automated exposure control 2. Adjustment of the mA and/or kV according to patient size 3. Use of iterative reconstruction technique. FINDINGS: Left unilateral pedicle screw fixation at L4-L5 with an intervening spacer device. The hardware is in tact and well fixated. Solid bony fusion across the left dorsolateral fusion mass and across the L4-L 5 disc space. Straightening of lumbar lordosis. Normal alignment in the coronal plane. Mild degenerat payam endplate irregularity at L5-S1. No significant disc space height loss. Vertebral body height is m aintained. Spinal cord similar device with leads entering at T12-L1 and L1-L2 and extending beyond the cephalad [id number]. No prevertebral or dorsal paraspinous edema. No significant incidental finding of the partially image d abdominal and pelvic contents. No significant degenerative findings or osseous encroachment on the central canal or neural foramina from T11-T12 through L2-L3. Mild bilateral facet arthrosis at L3-L4. No osseous encroachment on the n eural foramina or evidence for significant central canal stenosis. The central canal appears decompressed at the operative L4-L5 level. No osseous neural foraminal sten osis. Mild facet arthrosis bilaterally at L5-S1. Mild posterior disc bulge. Osseous neural foraminal narrow ing is mild on the left slightly more so than right. No evidence for severe central canal stenosis. IMPRESSION: 1. Intact and well fixated dorsal fusion construct at L4-L5. No acute osseous abnormality. 2. Mild degenerative changes above and below the L4-L5 operative level. Mild bilateral osseous neura l foraminal stenosis on the left slightly more so than right at L5-S1. No evidence for significant na rrowing of the central canal. If there is further concern nonemergent/outpatient MRI or CT myelograph y would allow for better characterization. Electronically signed by: ALANA MATHIAS MD (08/28/2021 10:08 PM) [facility]
== END 2021-08-28 23:00 | disposition home or self-care (01) ==
LOC: ER 20:13
DX: M54.42 Lumbago with sciatica, left side (principal); G89.29 Other chronic pain; Z87.891 Personal history of nicotine dependence; Z90.710 Acquired absence of both cervix and uterus; Z88.5 Allergy status to narcotic agent; Z88.1 Allergy status to other antibiotic agents; Z88.8 Allergy status to other drugs, medicaments and biological substances
CPT/HCPCS: 72131; 96372; 99284; J1885; J2360

== ENCOUNTER → 2021-08-29 | Outpatient (CLI) | payer BC ==
[2021-08-28 20:25] VITALS: BP 141/63
[~2021-08-29] MED LIST changes: +IOHEXOL 180 MG/ML 10 ML VIAL. ONE; +methylPREDNISolone ACETATE 40 MG/ML VIAL. ONE; +methylPREDNISolone ACETATE 80 MG/ML VIAL. ONE
--- NOTE | 2021-08-29 11:25 | PDOC ---
Progress Note - Pain Clinic Date of Service: DOS: DATE: 08/29/21 TIME: : Diagnosis: Dx: Cervical radiculopathy with cervical degenerative disease Lumbar radiculopathy with lumbar degenerative disease lumbar postlaminectomy syndrome with spinal cord stimulator History or Present Illness: HPI: 41-year-old female returns complaint seen March 2020 patient had spinal cord stimulator battery generator revision and replacement. Patient reports that she doing very well until the last time several days she had a laparoscopic assisted vaginal hysterectomy 1 week ago and 2 days ago had significant pain while she was standing taking a shower in the low back radiating left lower extremity to the point where she felt like she may pass out. Patient reports pain has subsided mildly she did present to the emergency department she was given a Toradol injection which helped decrease the pain but now significant in the low back rating left lower extremity posterior gluteus posterior thigh posterior calf as well as the lateral thigh on the left side patient reports that sharp and tight shooting can be tingling can be constant and severe over the past few days patient rates as a 9 on scale 10 is worst 7 on average 6 its least and is a 7 today. Patient reports no loss of motor function but significant fatigability and difficulty walking weightbearing with her left lower extremity. Patient did have a CT scan of the lumbar spine showing mild degenerative changes above and below the L4-5 operative field mild bilateral osseous neuroforaminal stenosis on the left slightly more so than the right at L5-S1. Patient reports again significant fatigability and difficulty with weightbearing on her left leg and no bowel or bladder incontinence. Patient stimulator is been working well she is keeping a charge without difficulty although does not covering the current pain. Physical Exam: VS: Blood pressure is 140.93 respirations 18 temperature 97.9 F weight 187 pounds. PE: PHYSICAL EXAMINATION: GENERAL: The patient is awake, alert, oriented, appropriate, very pleasant in demeanor HEENT: Shows normocephalic, atraumatic. Extraocular movements are intact and symmetrical. Oral cavity: Mucous membranes moist and pink. Dentition is intact. NECK: Shows anterior throat supple without palpable lymphadenopathy noted. Swallow reflex symmetrical. CHEST: Shows normal on inspection. Breath sounds are clear bilaterally, distant but no rales or rhonchi. HEART: Shows S1, S2 clear. No murmurs auscultated. ABDOMEN: Soft, nontender, nondistended, obese. No palpable organomegaly is noted. BACK: Shows spine grossly in the midline. Normal-appearing cervical lordotic curvature. There is slightly increased thoracic kyphosis, some minor flattening of the lumbar lordotic curvature, with well-healed surgical scarring noted and easily palpable spinal cord stimulator generator in the right superior medial gluteus with well-healed surgical scarring associated. Lumbar paraspinous muscles show symmetrical on inspection, on palpation shows some moderate tenderness diffusely throughout the upper, middle and lower distribution of the paraspinous muscles, but without specific trigger points, without radiation of pain. The patient has good rotational motion of the lumbar spine, both laterally as well as extension and flexion without significant difficulty. No tenderness over the spinous processes, sacrum or sacroiliac regions. EXTREMITIES: Lower extremities show deep tendon reflexes 1+ in the patellar and tendo calcaneus tendons. Motor exam is 5 on a scale of 5 with right dorsiflexion, extension, quadriceps and hamstring flexion and 4/5 on the left. Peripheral pulses are 1+ posterior tibial. No peripheral edema is noted bilaterally. Lower extremities are warm and dry to touch, equal in color and appearance. SKIN: Shows warm and dry, good turgor. No edema. No sores, rashes or bruising throughout. Procedure: Procedure: Options discussed with the patient. Patient chart reviews her current medica tion regimen updated current view systems updated today as well. We will proceed with a lumbar epidural steroid injection today with fluoroscopic guidance. Risks were discussed including but not limited to: Bleeding, infection, possibility of epidural hematoma and subsequent neurological compromise, dural puncture, headaches, spinal cord and/or nerve damage, side effects of steroid medication, and poor results regarding pain control. Patient understands and wished to proceed. Patient will return to the clinic in approximately 4 weeks for follow-up, was counseled as to return appointment, activity level, and side effect to be aware of. Medication Injected: Med Injected: Procedure is lumbar epidural steroid injection under local anesthetic using sterile prep and drape at the L5-S1 level using C-arm fluoroscopic guidance in both AP and lateral views medications injected is 120 mg Depo-Medrol +10mL preservative-free normal saline and 2 mL contrast- condition at discharge is st able patient tolerated procedure well had no complications. Condition at Discharge: Condition at Discharge: Condition at discharge stable, patient tolerated the procedure well and had no complications. JOSE ROBERTO MARY MD Aug 29, 2021 11:25
--- NOTE | 2021-08-29 11:26 | PDOC4 ---
Procedure Note: ICD 10 Code: ICD 10 Code: M54.17 M51.87 M 96.1 Procedure Note: Patient was consented for lumbar epidural steroid injection with fluoroscopic guidance risks were discussed including but not limited to: Bleeding, infection, possibility of epidural hematoma and subsequent neurological compromise, dural p uncture, headaches, spinal cord and/or nerve damage, side effects of steroid medication, and poor results regarding pain control. Patient understands and wished to proceed. Procedure is lumbar epidural steroid injection under local anesthetic using sterile prep and drape at the L5-S1 level using C-arm fluoroscopic guidance in both AP and lateral views medications injected is 120 mg Depo-Medrol +10mL preservative-free normal saline and 2 mL contrast- condition at discharge is stable patient tolerated procedure well had no complications. JOSE ROBERTO MARY MD Aug 29, 2021 11:26
== END | disposition home or self-care (01) ==
LOC: PNCL 10:12
PROVIDERS: ATTEND Anesthesiology
DX: M51.16 Intervertebral disc disorders with radiculopathy, lumbar region (principal); M96.1 Postlaminectomy syndrome, not elsewhere classified; M50.10 Cervical disc disorder with radiculopathy, unspecified cervical region; K21.9 Gastro-esophageal reflux disease without esophagitis; M19.90 Unspecified osteoarthritis, unspecified site; E03.9 Hypothyroidism, unspecified; F41.9 Anxiety disorder, unspecified; F32.9 Major depressive disorder, single episode, unspecified; Z87.891 Personal history of nicotine dependence; Z79.84 Long term (current) use of oral hypoglycemic drugs; Z79.899 Other long term (current) drug therapy; Z88.1 Allergy status to other antibiotic agents; Z88.5 Allergy status to narcotic agent; Z88.8 Allergy status to other drugs, medicaments and biological substances; Z98.890 Other specified postprocedural states
CPT/HCPCS: 62323; J1030; J1040; Q9965

== ENCOUNTER → 2021-10-08 | Outpatient (CLI) | payer BC ==
[~2021-10-08] MED LIST changes: -methylPREDNISolone ACETATE 40 MG/ML VIAL. ONE
--- NOTE | 2021-10-08 11:53 | PDOC ---
Progress Note - Pain Clinic Date of Service: DOS: DATE: 10/08/21 TIME: 11:48 Diagnosis: Dx: Lumbar radiculopathy with lumbar degenerative disease and lumbar postlaminectomy syndrome Cervical radiculopathy with cervical degenerative disc disease History or Present Illness: HPI: 41-year-old female returns for follow-up status post lumbar epidural steroid injection x1 on August 29, 2021 patient reports she did very well with about 90% improvement for about a month pain returning now in the low back and left lower extremity posterior gluteus posterior thigh posterior calf patient reports some in the lateral thigh as well with walking and standing also across the low back into the right hip which is unusual but patient reports is a new pain on the right leg which is not radiating nearly as far as the left leg but still significant in the posterior gluteus and top of the right thigh posteriorly. Patient reports her pain is a 9 on scale 10 is worse over the past week 7 on average 6 its least is a 7 today. Patient reports better with sitting or lying down worse with walking standing but initially was doing much better distance walking doing household activities work activities travel with greater ease and comfort sleeping better now it is waking her from sleep about once a night or every 6 hours or so. Patient reports pain is tingling and stabbing in the back sharp and shooting in the legs radiating constant can be severe at times and again some on the right side only on the left side as previously. Patient reports no bowel or bladder incontinence. Physical Exam: VS: Blood pressures 128/85 pulse 101 respirations 18 temperature 98.0 F weight is 186 pounds. PE: PHYSICAL EXAMINATION: GENERAL: The patient is awake, alert, oriented, appropriate, very pleasant in demeanor HEENT: Shows normocephalic, atraumatic. Extraocular movements are intact and symmetrical. Oral cavity: Mucous membranes moist and pink. Dentition is intact. NECK: Shows anterior throat supple without palpable lymphadenopathy noted. Swallow reflex symmetrical. CHEST: Shows normal on inspection. Breath sounds are clear bilaterally, distant but no rales or rhonchi. HEART: Shows S1, S2 clear. No murmurs auscultated. ABDOMEN: Soft, nontender, nondistended. No palpable organomegaly is noted. BACK: Shows spine grossly in the midline. Normal-appearing cervical lordotic curvature. There is slightly increased thoracic kyphosis, some minor flattening of the lumbar lordotic curvature. Lumbar paraspinous muscles show symmetrical on inspection, on palpation shows some moderate tenderness diffusely throughout the upper, middle and lower distribution of the paraspinous muscles, but without specific trigger points, without radiation of pain. The patient has good rotational motion of the lumbar spine, both laterally as well as extension and flexion without significant difficulty. No tenderness over the spinous processes, sacrum or sacroiliac regions. EXTREMITIES: Lower extremities show deep tendon reflexes 1+ in the patellar and tendo calcaneus tendons. Motor exam is 5 on a scale of 5 with right dorsiflexion, extension, quadriceps and hamstring flexion and 4/5 on the left. Peripheral pulses are 1 posterior tibial. No peripheral edema is noted bilaterally. Lower extremities are warm and dry. SKIN: Shows warm and dry, good turgor. No edema. No sores, rashes or bruising throughout. Procedure: Procedure: Options were discussed with the patient. Patient's old heart was reviewed as her current medication regimen updated current review of systems updated today as well. We will proceed with a lumbar epidural steroid injection today with fluoroscopic guidance. Risks were discussed including but not limited to: Bleeding, infection, possibility of epidural hematoma and subsequent neurological compromise, dural puncture, headaches, spinal cord and/or nerve damage, side effects of steroid medication, and poor results regarding pain control. Patient understands and wished to proceed. Patient will return to the clinic in approximately 4 weeks for follow-up, was counseled as to return appointment, activity level, and side effect to be aware of. Medication Injected: Med Injected: Procedure is lumbar epidural steroid injection under local anesthetic using sterile prep and drape at the L5-S1 level using C-arm fluoroscopic guidance in both AP and lateral views medications injected is 120 mg Depo-Medrol +10mL preservative-free normal saline and 2 mL contrast- condition at discharge is stable patient tolerated procedure well had no complications. Condition at Discharge: Condition at Discharge: Condition at discharge stable, patient Mirta the procedure well and had no complications. JOSE ROBERTO MARY MD Oct 08, 2021 11:53
--- NOTE | 2021-10-08 11:54 | PDOC4 ---
Procedure Note: ICD 10 Code: ICD 10 Code: M54.16 M51.36 M96.1 Procedure Note: Patient was consented for lumbar epidural steroid injection with fluoroscopic guidance. Risks were discussed including but not limited to: Bleeding, infection, possibility of epidural hematoma and subsequent neurological compromise, dural puncture, headaches, spinal cord and/or nerve damage, side effects of steroid medication, and poor results regarding pain control. Patient understands and wished to proceed. Procedure is lumbar epidural steroid injection under local anesthetic using sterile prep and drape at the L5-S1 level using C-arm fluoroscopic guidance in both AP and lateral views medications injected is 120 mg Depo-Medrol +10mL preservative-free normal saline and 2 mL contrast- condition at discharge is stable patient tolerated procedure well had no complications. JOSE ROBERTO MARY MD Oct 08, 2021 11:54
== END | disposition home or self-care (01) ==
LOC: PNCL 11:13
PROVIDERS: ATTEND Anesthesiology
DX: M51.16 Intervertebral disc disorders with radiculopathy, lumbar region (principal); M96.1 Postlaminectomy syndrome, not elsewhere classified; M50.10 Cervical disc disorder with radiculopathy, unspecified cervical region; E03.9 Hypothyroidism, unspecified; K21.9 Gastro-esophageal reflux disease without esophagitis; M19.90 Unspecified osteoarthritis, unspecified site; F41.9 Anxiety disorder, unspecified; F32.9 Major depressive disorder, single episode, unspecified; Z87.891 Personal history of nicotine dependence; Z79.84 Long term (current) use of oral hypoglycemic drugs; Z79.899 Other long term (current) drug therapy; Z98.890 Other specified postprocedural states; Z88.1 Allergy status to other antibiotic agents; Z88.5 Allergy status to narcotic agent; Z88.8 Allergy status to other drugs, medicaments and biological substances
CPT/HCPCS: 62323; J1040; Q9965

== ENCOUNTER → 2021-11-12 | Outpatient (CLI) | payer BC ==
[~2021-11-12] MED LIST changes: +DEXAMETHASONE PRES.FREE 10 MG/ML VIAL. ONE; -methylPREDNISolone ACETATE 80 MG/ML VIAL. ONE
--- NOTE | 2021-11-12 10:17 | PDOC ---
Progress Note - Pain Clinic Date of Service: DOS: DATE: 11/12/21 TIME: 10:13 Diagnosis: Dx: Lumbar radiculopathy with lumbar degenerative disease lumbar postlaminectomy syndrome Cervical radiculopathy cervical degenerative disease Osteoarthritis History or Present Illness: HPI: 41-year-old female returns for follow-up status post lumbar epidural steroid injection October 08, 2019 patient about 90% better for the first 3 weeks or so patient reports the pain is returning in a gradual basis but still improved in the low back left lower extremity posterior gluteus posterior thigh posterior calf patient reports worse with walking standing changing position rates her pain is a 10 on scale 10 is worst 6 on average to its least and is a 3 today. Patient reports aching and dull and across the low back cramping and stabbing with some shooting pain that is radiating in the left leg as noted patient reports no bowel or bladder incontinence no loss of motor function but significant fatigability the left leg with standing and walking. Patient reports also she is taking at least 4-5 times a day ibuprofen which is beginning gives her stomach upset and also not helping the pain significantly. We discussed this further and will change this to new medication prescription of meloxicam 15 mg daily. Patient was given instructions well side effects aware of with the new prescription medication. Physical Exam: VS: Blood pressure is 130/83 pulse 101 respirations 18 temperature 97.2 F height 5 feet 4 inches weight is 192 pounds. PE: PHYSICAL EXAMINATION: GENERAL: The patient is awake, alert, oriented, appropriate, very pleasant in demeanor HEENT: Shows normocephalic, atraumatic. Extraocular movements are intact and symmetrical. Oral cavity: Mucous membranes moist and pink. Dentition is intact. NECK: Shows anterior throat supple without palpable lymphadenopathy noted. Swallow reflex symmetrical. CHEST: Shows normal on inspection. Breath sounds are clear bilaterally. HEART: Shows S1, S2 clear. No murmurs auscultated. ABDOMEN: Soft, nontender, nondistended. No palpable organomegaly is noted. BACK: Shows spine grossly in the midline. Normal-appearing cervical lordotic curvature. There is slightly increased thoracic kyphosis, some flattening of the lumbar lordotic curvature, with well-healed surgical scarring noted and easily palpable spinal cord stimulator generator. Lumbar paraspinous muscles show symmetrical on inspection, on palpation shows some moderate tenderness diffusely throughout the upper, middle and lower distribution of the paraspinous muscles without specific trigger points, without radiation of pain. The patient has good rotational motion of the lumbar spine, both laterally as well as extension and flexion without significant difficulty. No tenderness over the spinous processes, sacrum or sacroiliac regions. EXTREMITIES: Lower extremities show deep tendon reflexes 1 in the patellar and tendo calcaneus tendons. Motor exam is 5 on a scale of 5 with right dorsiflexion, extension, quadriceps and hamstring flexion and 4/5 on the left. Peripheral pulses are 1+ posterior tibial. No peripheral edema is noted bilaterally. Lower extremities are warm and dry to touch, equal in color and appearance. SKIN: Shows warm and dry, good turgor. No edema. No sores, rashes or bruising throughout. Procedure: Procedure: Options were discussed with patient. Patient's old chart was viewed as her current medication regimen updated current view of systems updated today as well. We will proceed with a lumbar epidural steroid injection today with fluoroscopic guidance. Risks were discussed including but not limited to: Bleeding, infection, possibility of epidural hematoma and subsequent neurological compromise, dural puncture, headaches, spinal cord and/or nerve damage, side effects of steroid medication, and poor results regarding pain con trol. Patient understands and wished to proceed. Patient will return to clinic in approximately 2 weeks for follow-up, was counseled as to return appointment, activity level, and side effects to be aware of. Medication Injected: Med Injected: Procedure is lumbar epidural steroid injection under local anesthetic using sterile prep and drape at the L5-S1 level using C-arm fluoroscopic guidance in both AP and lateral views medications injected is 20 mg dexamethasone +10mL pre servative-free normal saline and 2 mL contrast- condition at discharge is stable patient tolerated procedure well had no complications. Condition at Discharge: Condition at Discharge: Condition at discharge stable, patient tolerated the procedure well and had no complications. JOSE ROBERTO MARY MD Nov 12, 2021 10:17
--- NOTE | 2021-11-12 10:18 | PDOC4 ---
Procedure Note: ICD 10 Code: ICD 10 Code: M54.17 M51.7 M 96.1 Procedure Note: Patient was consented for lumbar epidural steroid injection with fluoroscopic guidance. Risks were discussed including but not limited to: Bleeding, infection, possibility of epidural hematoma and subsequent neurological compromise, dural puncture, headaches, spinal cord and/or nerve damage, side effects of steroid medication, and poor results regarding pain control. Patient understands and wished to proceed. Procedure is lumbar epidural steroid injection under local anesthetic using sterile prep and drape at the L5-S1 level using C-arm fluoroscopic guidance in both AP and lateral views medications injected is 20 mg dexamethasone +10mL preservative-free normal saline and 2 mL contrast- condition at discharge is stable patient tolerated procedure well had no complications. JOSE ROBERTO MARY MD Nov 12, 2021 10:18
--- NOTE | 2021-11-13 13:11 | FMN ---
PT PROBLEMS Addendum for date of service November 12, 2021. Initial line should read last lumbar epidural steroid injection was performed on October 08, 2021 not 2019. JOSE ROBERTO MARY MD Nov 13, 2021 13:11
== END | disposition home or self-care (01) ==
LOC: PNCL 09:55
PROVIDERS: ATTEND Anesthesiology
DX: M51.16 Intervertebral disc disorders with radiculopathy, lumbar region (principal); M96.1 Postlaminectomy syndrome, not elsewhere classified; M50.10 Cervical disc disorder with radiculopathy, unspecified cervical region; M19.90 Unspecified osteoarthritis, unspecified site; K21.9 Gastro-esophageal reflux disease without esophagitis; E03.9 Hypothyroidism, unspecified; F41.9 Anxiety disorder, unspecified; F32.9 Major depressive disorder, single episode, unspecified; Z98.51 Tubal ligation status; Z98.890 Other specified postprocedural states; Z79.899 Other long term (current) drug therapy; Z79.84 Long term (current) use of oral hypoglycemic drugs; Z87.891 Personal history of nicotine dependence; Z88.1 Allergy status to other antibiotic agents; Z88.5 Allergy status to narcotic agent; Z88.8 Allergy status to other drugs, medicaments and biological substances
CPT/HCPCS: 62323; J1100; Q9965